=== PATIENT | male | born 1965 | race Asian ===

== ENCOUNTER 2017-03-21 17:11 | Emergency (ER) | payer SELFPAY ==
[2017-03-21 17:24] VITALS: O2SAT 98
[2017-03-21] MEDS ORDERED: ONDANSETRON HCL 4 MG/2 ML VIAL IV PUSH ONE (17:30)
[2017-03-21] MEDS ORDERED: SODIUM CHLOR 0.9% 1000 ML INJ 1,000 ML IV ONE (17:30)
[2017-03-21] MEDS ORDERED: MORPHINE SULFATE 4 MG/ML INJ IV PUSH ONE (17:30)
[2017-03-21] MEDS ORDERED: SODIUM CHLORIDE 0.9% FLUSH 10 ML FLUSH IVF PRN (17:30)
[2017-03-21 17:40] LABS: I-STAT POTASSIUM 3.9 MMOL/L (3.5-4.9)
[2017-03-21] MEDS ORDERED: IOHEXOL 350 MG/ML 10 ML VIAL (for RAD DIAG) IVCONTRAST ONE (17:42)
--- NOTE | 2017-03-21 17:47 | RADRPT ---
EXAM DATE/TIME: 03/21/2017 17:25 [facility] COMPARISON: No previous studies available for comparison. INDICATIONS : Trauma alert, fall from ladder. MEDICAL HISTORY : None. SURGICAL HISTORY : None. ENCOUNTER: Initial ACUITY: 1 day PAIN SCORE: 10/10 LOCATION: Left chest FINDINGS: A single view of the chest demonstrates the lungs to be symmetrically aerated without evidence of mas s, infiltrate or effusion. The cardiomediastinal contours are unremarkable. Osseous structures are intact. CONCLUSION: Normal examination. Joseluis Perales MD on March 21, 2017 at 17:46 Board Certified Radiologist. This report was verified electronically.
--- NOTE | 2017-03-21 17:48 | RADRPT ---
EXAM DATE/TIME: 03/21/2017 17:26 [facility] COMPARISON: No previous studies available for comparison. INDICATIONS : Trauma alert, fall from ladder. MEDICAL HISTORY : None. SURGICAL HISTORY : None. ENCOUNTER: Initial ACUITY: 1 day PAIN SCORE: 1/10 LOCATION: Bilateral pelvis. FINDINGS: A single frontal view of the pelvis demonstrates no evidence of fracture. The bony pelvic ring is in tact. Bony mineralization is normal. The soft tissues are intact. CONCLUSION: Unremarkable examination of the pelvis. Joseluis Perales MD on March 21, 2017 at 17:46 Board Certified Radiologist. This report was verified electronically.
[2017-03-21 17:49] LABS: AUTOMATED NEUTROPHIL # 6.7 TH/MM3 (1.8-7.7); BASOPHIL # 0.1 TH/MM3 (0-0.2); BASOPHIL % 0.9 % (0.0-2.0); EOSINOPHIL # 0.1 TH/MM3 (0-0.4); EOSINOPHIL % 1.2 % (0.0-4.0); HEMATOCRIT 43.3 % (39.0-51.0); HEMO FLAGS DIFF FINAL; LYMPH % 23.6 % (9.0-44.0); LYMPHOCYTE # 2.3 TH/MM3 (1.0-4.8); MEAN CELL VOLUME 92.6 FL (80.0-100.0); MEAN CORPUSCULAR HEMOGLOBIN 32.3 PG (27.0-34.0); MEAN CORPUSCULAR HGB CONC 34.9 % (32.0-36.0); MONO % 6.2 % (0.0-8.0); NEUT % 68.1 % (16.0-70.0); PLATELET COUNT 264 TH/MM3 (150-450); RED BLOOD COUNT 4.67 MIL/MM3 (4.50-5.90); RED CELL DISTRIBUTION WIDTH 13.2 % (11.6-17.2); WHITE BLOOD COUNT 9.8 TH/MM3 (4.0-11.0)
--- NOTE | 2017-03-21 17:53 | RADRPT ---
EXAM DATE/TIME: 03/21/2017 17:28 [facility] COMPARISON: No previous studies available for comparison. INDICATIONS : Trauma. Fell off roof. RADIATION DOSE: 56.35 CTDIvol (mGy) MEDICAL HISTORY : None SURGICAL HISTORY : None. ENCOUNTER: Initial ACUITY: 1 day PAIN SCALE: 5/10 LOCATION: cranial TECHNIQUE: Multiple contiguous axial images were obtained of the head. Using automated exposure control and adj ustment of the mA and/or kV according to patient size, radiation dose was kept as low as reasonably a chievable to obtain optimal diagnostic quality images. DICOM format image data is available electro nically for review and comparison. FINDINGS: CEREBRUM: The ventricles are normal for age. No evidence of midline shift, mass lesion, hemorrhage or acute in farction. No extra-axial fluid collections are seen. POSTERIOR FOSSA: The cerebellum and brainstem are intact. The 4th ventricle is midline. The cerebellopontine angle i s unremarkable. EXTRACRANIAL: The visualized portion of the orbits is intact. SKULL: The calvaria is intact. No evidence of skull fracture. CONCLUSION: Normal examination. Joseluis Perales MD on March 21, 2017 at 17:51 Board Certified Radiologist. This report was verified electronically.
[2017-03-21] MEDS ORDERED: MORPHINE SULFATE 8 MG/ML INJ ONE (17:54)
[2017-03-21 17:55] LABS: APTT (PATIENT) 25.7 SEC (24.3-30.1); PROTHROMBIN TIME - PATIENT 10.8 SEC (9.8-11.6)
[2017-03-21] MEDS ORDERED: ONDANSETRON HCL 4 MG/2 ML VIAL ONE (17:55)
--- NOTE | 2017-03-21 17:59 | PD ---
HPI Chief Complaint: Trauma (Alert) Time Seen by Provider: 17:18 Travel History International Travel<30 days: No Contact w/Intl Traveler<30days: No History of Present Illness HPI 52 y/o male presents after he states he fell approximately 12 feet off a ladder. He states he did not lose consciousness. He states he landed on his left chest and that is where he is having the most pain. Quality pain is sharp. Severity is severe. Pain is worse when he breathes or with movement. He denies other modifying factors. He fell shortly prior to arrival. PFSH Past Medical History Medical History: Denies Significant Hx Past Surgical History Other Surgery: Yes (rotator cuff) Social History Alcohol Use: No Tobacco Use: No Substance Use: No Allergies-Medications (Allergen,Severity, Reaction): Coded Allergies: No Known Allergies (Unverified , 03/21/17) Reported Meds & Prescriptions Reported Meds & Active Scripts Active Percocet (Oxycodone-Acetaminophen) 5-325 mg Tab 1 Tab PO Q6H PRN Review of Systems Except as stated in HPI: all other systems reviewed are Neg Physical Exam Narrative General: 52 y/o patient in no apparent distress Skin: Warm and dry Eyes: Pupils equal ENT: no septal hematoma NECK: no pain with palpation Cardiovascular: Regular rate and rhythm Respiratory: Normal respiratory effort noted, clear to auscultation bilaterally at apices Abdomen: soft, tender left upper quadrant, nondistended Back: No step-offs, midline spine nontender with palpation Extremities: No pain over main joints on initial examination Neuro: awake, alert, sensation and motor grossly intact Data Data Last Documented VS Vital Signs Date Time Temp Pulse Resp B/P (MAP) Pulse Ox O2 Delivery O2 Flow Rate FiO2 03/21/17 17:24 98 21 Orders Orders I-Stat Profile (03/21/17 17:18) I-Stat Creatinine (03/21/17 17:18) Complete Blood Count With Diff (03/21/17 17:18) Prothrombin Time / Inr (Pt) (03/21/17 17:18) Act Partial Throm Time (Ptt) (03/21/17 17:18) Type And Screen (03/21/17 17:18) Chest, Single Ap (03/21/17 17:18) Pelvis, Ap Only (Routine) (03/21/17 17:18) Ct Brain W/O Iv Contrast(Rout) (03/21/17 17:18) Ct Cerv Spine W/O Contrast (03/21/17 17:18) Ct Abd/Pel W Iv Contrast(Rout) (03/21/17 17:18) Ct Thorax/ Chest W Iv Contrast (03/21/17 17:18) Apply Cervical Collar (03/21/17 17:18) Iv Access Insert/Monitor (03/21/17 17:18) Ecg Monitoring (03/21/17 17:18) Oximetry (03/21/17 17:18) Sodium Chloride 0.9% Flush (Ns Flush) (03/21/17 17:30) Morphine Inj (Morphine Inj) (03/21/17 17:30) Ondansetron Inj (Zofran Inj) (03/21/17 17:30) Sodium Chlor 0.9% 1000 Ml Inj (Ns 1000 M (03/21/17 17:30) Iohexol 350 Inj (Omnipaque 350 Inj) (03/21/17 17:42) Morphine Inj (Morphine Inj) (03/21/17 17:54) Ondansetron Inj (Zofran Inj) (03/21/17 17:55) Ed Discharge Order (03/21/17 18:26) Resp Incentive Spirometry (03/21/17 ) Labs Laboratory Tests Test 03/21/17 17:23 White Blood Count 9.8 TH/MM3 Red Blood Count 4.67 MIL/MM3 Hemoglobin 15.1 GM/DL Bedside Hemoglobin 15.0 G/DL Hematocrit 43.3 % Bedside Hematocrit 44.0 % Mean Corpuscular Volume 92.6 FL Mean Corpuscular Hemoglobin 32.3 PG Mean Corpuscular Hemoglobin Concent 34.9 % Red Cell Distribution Width 13.2 % Platelet Count 264 TH/MM3 Mean Platelet Volume 8.3 FL Neutrophils (%) (Auto) 68.1 % Lymphocytes (%) (Auto) 23.6 % Monocytes (%) (Auto) 6.2 % Eosinophils (%) (Auto) 1.2 % Basophils (%) (Auto) 0.9 % Neutrophils # (Auto) 6.7 TH/MM3 Lymphocytes # (Auto) 2.3 TH/MM3 Monocytes # (Auto) 0.6 TH/MM3 Eosinophils # (Auto) 0.1 TH/MM3 Basophils # (Auto) 0.1 TH/MM3 CBC Comment DIFF FINAL Differential Comment Prothrombin Time 10.8 SEC Prothromb Time International Ratio 1.0 RATIO Activated Partial Thromboplast Time 25.7 SEC Bedside Sodium 145 MMOL/L Bedside Potassium 3.9 MMOL/L Bedside Chloride 106 MMOL/L Bedside Blood Urea Nitrogen 24 MG/DL Bedside Creatinine 1.3 MG/DL Bedside Glucose 112 MG/DL MDM Medical Decision Making Medical Screen Exam Complete: Yes Emergency Medical Condition: Yes Medical Record Reviewed: Yes (past history confirmed) Interpretation(s) CBC & BMP Diagram 03/21/17 17:23 Last 24 hours Impressions Pelvis X-Ray 03/21/171717 Signed Impressions: Service Date/Time: Tuesday, March 21, 2017 17:26 - CONCLUSION: Unremarkable examination of the pelvis. Joseluis Perales MD Head CT 03/21/171717 Signed Impressions: Service Date/Time: Tuesday, March 21, 2017 17:28 - CONCLUSION: Normal examination. Joseluis Perales MD Chest X-Ray 03/21/171717 Signed Impressions: Service Date/Time: Tuesday, March 21, 2017 17:25 - CONCLUSION: Normal examination. Joseluis Perales MD Differential Diagnosis Fracture, bleed, strain Narrative Course Patient arrived from triage. Vitals stable but given the height of fall will activate level II trauma alert And monitor Trauma workup shows fifth through seventh rib fractures on the left without other concurrent injury. Patient not wanting morphine here and wanting to go home. We will provide with Percocet as needed at home. He understands that he cannot take this if he is driving to stay off ladders. Given return instructions Diagnosis Primary Impression: Ribs, multiple fractures Qualified Codes: S22.42XA - Multiple fractures of ribs, left side, initial encounter for closed fracture Patient Instructions: General Instructions Additional Instructions: return as needed, incentive spirometer every hour while awake, percocet as needed for severe pain Med/Other Pt SpecificInfo: Prescription(s) given Scripts Oxycodone-Acetaminophen (Percocet) 5-325 mg Tab 1 TAB PO Q6H Y for PAIN, #15 TAB 0 Refills Prov: Shaunna Rivera MD 03/21/17 Disposition: 01 DISCHARGE HOME Condition: Stable Shaunna Rivera MD Mar 21, 2017 17:59
--- NOTE | 2017-03-21 18:10 | RADRPT ---
EXAM DATE/TIME: 03/21/2017 17:45 [facility] COMPARISON: No previous studies available for comparison. INDICATIONS : Trauma.Fell off roof. IV CONTRAST: 85 cc Omnipaque 350 (iohexol) IV ; Cumulative dose for multiple exams. ORAL CONTRAST: No oral contrast ingested. RADIATION DOSE: 5.37 CTDIvol (mGy) MEDICAL HISTORY : None SURGICAL HISTORY : None. ENCOUNTER: Initial ACUITY: 1 day PAIN SCALE: 7/10 LOCATION: abdomen TECHNIQUE: Volumetric scanning of the abdomen and pelvis was performed. Using automated exposure control and ad justment of the mA and/or kV according to patient size, radiation dose was kept as low as reasonably achievable to obtain optimal diagnostic quality images. DICOM format image data is available electro nically for review and comparison. FINDINGS: LOWER LUNGS: The visualized lower lungs are clear. LIVER: Homogeneous density without lesion. There is no dilation of the biliary tree. No calcified gallston es. SPLEEN: Normal size without lesion. PANCREAS: Within normal limits. KIDNEYS: Normal in size and shape. There is no mass, stone or hydronephrosis. ADRENAL GLANDS: Within normal limits. VASCULAR: There is no aortic aneurysm. BOWEL/MESENTERY: The stomach, small bowel, and colon demonstrate no acute abnormality. There is no free intraperitone al air or fluid. ABDOMINAL WALL: Within normal limits. RETROPERITONEUM: There is no lymphadenopathy. BLADDER: No wall thickening or mass. REPRODUCTIVE: Within normal limits. INGUINAL: There is no lymphadenopathy or hernia. MUSCULOSKELETAL: Within normal limits for patient age. CONCLUSION: Normal examination. Joseluis Perales MD on March 21, 2017 at 18:08 Board Certified Radiologist. This report was verified electronically.
--- NOTE | 2017-03-21 18:12 | RADRPT ---
EXAM DATE/TIME: 03/21/2017 17:47 [facility] COMPARISON: No previous studies available for comparison. INDICATIONS : Trauma. Fell off roof. IV CONTRAST: 85 cc Omnipaque 350 (iohexol) IV ; Cumulative dose for multiple exams. RADIATION DOSE: 5.37 CTDIvol (mGy) ; Combined studies - Thorax/Abdomen/Pelvis MEDICAL HISTORY : None SURGICAL HISTORY : None. ENCOUNTER: Initial ACUITY: 1 day PAIN SCALE: 6/10 LOCATION: Bilateral cranial TECHNIQUE: Volumetric scanning of the chest was performed. Using automated exposure control and adjustment of t he mA and/or kV according to patient size, radiation dose was kept as low as reasonably achievable to obtain optimal diagnostic quality images. DICOM format image data is available electronically for review and comparison. Follow-up recommendations for detected pulmonary nodules are based at a minimum on nodule size and pa tient risk factors according to Fleischner Society Guidelines. FINDINGS: LUNGS: There is no consolidation or pneumothorax. No concerning pulmonary nodule is visualized. PLEURA: There is no pleural thickening or pleural effusion. MEDIASTINUM: The heart and great vessels demonstrate no acute abnormality. There is no mediastinal or hilar lymph adenopathy. AXILLAE: Within normal limits. No lymphadenopathy. SKELETAL: Left fifth through seventh rib fractures without significant adjacent pleural effusion or pneumothora x. MISCELLANEOUS: The visualized upper abdominal organs demonstrate no acute abnormality. CONCLUSION: Left fifth through seventh rib fractures. No pneumothorax or significant pleural effusion Joseluis Perales MD on March 21, 2017 at 18:09 Board Certified Radiologist. This report was verified electronically.
--- NOTE | 2017-03-21 18:12 | RADRPT ---
EXAM DATE/TIME: 03/21/2017 17:36 [facility] COMPARISON: No previous studies available for comparison. INDICATIONS : Trauma. Fell off roof. RADIATION DOSE: 48.06 CTDIvol (mGy) MEDICAL HISTORY : None SURGICAL HISTORY : None. ENCOUNTER: Initial ACUITY: 1 day PAIN SCALE: 5/10 LOCATION: neck TECHNIQUE: Volumetric scanning of the cervical spine was performed. Multiplanar reconstructions in the sagittal, coronal and oblique axial planes were performed. Using automated exposure control and adjustment o f the mA and/or kV according to patient size, radiation dose was kept as low as reasonably achievable to obtain optimal diagnostic quality images. DICOM format image data is available electronically f or review and comparison. FINDINGS: VERTEBRAE: Normal vertebral body height. There is an old C6 spinous process fracture. This is smoothly corticate d. No acute fracture. ALIGNMENT: No evidence of subluxation. C2-C3: The bony spinal canal is normal in size. No evidence of disc bulge or herniation. The neural forami na are bilaterally patent. C3-C4: There is a mild broad-based disc bulge. No central canal stenosis or lateral recess narrowing. Neural foramina are patent. C4-C5: Mild central bulge without abutment of the cord or central canal stenosis. Neural foramina are patent bilaterally. C5-C6: There is a mild broad-based disc bulge. Slightly eccentric to the right. Narrowing of the right later al recess. Left lateral recess and central canal are patent. Neural foramina are patent. C6-C7: There is a broad-based disc osteophyte complex. Mild flattening of the ventral portion of the cord. N arrowing of the lateral recesses bilaterally. Uncovertebral hypertrophy contributes to bilateral mild neural foraminal narrowing. C7-T1: The bony spinal canal is normal in size. No evidence of disc bulge or herniation. The neural forami na are bilaterally patent. CONCLUSION: 1. No acute fracture or dislocation. 2. 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 3. Multilevel degenerative changes as detailed above. Brock Tompkins Jr., MD on March 21, 2017 at 17:54 Board Certified Radiologist. This report was verified electronically.
[2017-03-21 18:15] VITALS: BP_SYST 134; BP_DIAS 75; BP_DIAS 76; PULSE 86; RESP 18; O2SAT 98
[2017-03-21] MEDS ORDERED: PERC5TAB12 PO (18:29)
[2017-03-21 19:05] VITALS: BP 154/78
[2017-03-21 19:19] VITALS: RESP 18
== END 2017-03-21 19:31 | disposition home or self-care (01) ==
LOC: NEPE 17:11
DX: S22.42XA Multiple fractures of ribs, left side, initial encounter for closed fracture (principal); W11.XXXA Fall on and from ladder, initial encounter
CPT/HCPCS: 70450; 71010; 71260; 72125; 72170; 74177; 82435; 82565; 82947; 84132; 84295; 84520; 85025; 85610; 85730; 86850; 86900; 86901; 94150; 96374; 96375; 99285; J2270; J2405; Q9967